=== PATIENT | female | born 1955 | race Caucasian/White ===

== ENCOUNTER 2017-12-23 12:18 | Emergency (ER) | payer BC ==
[2017-12-23 14:19] LABS: ADD MAN DIFF? NO
[2017-12-23 14:23] LABS: BASOPHILS % 0.4 % (0.0-2.0); EOSINOPHILS # 0.1 10^3/ul (0.0-0.5); EOSINOPHILS % 0.6 % (0.0-7.0); HEMOGLOBIN 10.4 g/dl (12.0-16.0); LYMPHOCYTES # 2.1 10^3/ul (0.8-2.9); LYMPHOCYTES % 26.6 % (15.0-51.0); MEAN CORPUSCULAR HEMOGLOBIN 29.1 pg (29.0-33.0); MEAN CORPUSCULAR HGB CONC 33.5 g/dl (32.0-37.0); MEAN CORPUSCULAR VOLUME 86.8 fl (82.0-101.0); MEAN PLATELET VOLUME 8.5 fl (7.4-10.4); MONOCYTE # 0.6 10^3/ul (0.3-0.9); MONOCYTES % 7.9 % (0.0-11.0); NEUTROPHIL # 5.1 10^3/ul (1.6-7.5); NEUTROPHILS % 63.7 % (39.0-77.0); PLATELET COUNT 503 10^3/UL (140-415); RED BLOOD COUNT 3.57 10^6/ul (4.20-5.40)
[2017-12-23] MEDS: PIPER-TAZO 3.375 GM IV (PMX) 100 ML IVPB (14:24)
[2017-12-23] MEDS: SODIUM CHLORIDE 0.9% 1L BAG IV* (14:25)
[2017-12-23 14:42] LABS: ALANINE AMINOTRANSFERASE 10 IU/L (13-69); ALBUMIN 3.2 g/dl (3.3-4.9); ALKALINE PHOSPHATASE 121 IU/L (42-121); AMYLASE 100 U/L (11-123); ANION GAP 16 (8-16); ASPARTATE AMINO TRANSFERASE 21 IU/L (15-46); BLOOD UREA NITROGEN 12 mg/dl (7-20); CALCIUM 9.2 mg/dl (8.4-10.2); CARBON DIOXIDE 27 mmol/L (21-31); CHLORIDE 104 mmol/L (97-110); CREATININE 0.57 mg/dl (0.44-1.00); GLUCOSE 108 mg/dl (70-220); LIPASE 279 U/L (23-300); SODIUM 144 mmol/L (135-144); TOTAL PROTEIN 8.5 g/dl (6.1-8.1)
[2017-12-23 14:48] LABS: LACTIC ACID 2.1 mmol/L (0.5-2.0)
[2017-12-23 14:56] LABS: TROPONIN-I < 0.012 ng/ml (0.00-0.12)
[2017-12-23 15:00] LABS: INR 0.99; PROTIME 13.2 Sec (11.9-14.9)
[2017-12-23 15:01] LABS: PARTIAL THROMBOPLASTIN TIME 39.8 Sec (25.0-35.0)
[2017-12-23] MEDS: CLINDAMYCIN 900 MG/D5W (PMX) 50 ML IVPB (15:26)
[2017-12-23 16:21] LABS: ADD UMIC YES; UR ASCORBIC ACID NEGATIVE (NEGATIVE); UR BACTERIA FEW /HPF (NONE SEEN); UR BILIRUBIN (Dip) NEGATIVE (NEGATIVE); UR BLOOD (Dip) 2+ mg/dL (NEGATIVE); UR CLARITY CLEAR (CLEAR); UR COLOR YELLOW (YELLOW); UR GLUCOSE (Dip) NEGATIVE (NEGATIVE); UR KETONES (Dip) NEGATIVE (NEGATIVE); UR LEUKOCYTE ESTERASE (Dip) TRACE Leu/ul (NEGATIVE); UR NITRITE (Dip) NEGATIVE (NEGATIVE); UR RBC 1 /HPF (0-5); UR SPECIFIC GRAVITY (Dip) 1.011 (1.003-1.030); UR TOTAL PROTEIN (Dip) NEGATIVE (NEGATIVE); UR UROBILINOGEN (Dip) NEGATIVE (NEGATIVE); UR WBC 2 /HPF (0-5)
[2017-12-23 16:39] LABS: AMPHETAMINE/METHAMPHETAMINE Negative (NEGATIVE)
[2017-12-23 16:40] LABS: LACTIC ACID 0.8 mmol/L (0.5-2.0)
[2017-12-23 16:40] LABS: BARBITURATES Negative (NEGATIVE); BENZODIAZEPINES Negative (NEGATIVE); CANNABINOIDS Negative (NEGATIVE); COCAINE Negative (NEGATIVE); OPIATES Positive (NEGATIVE)
[2017-12-23] MEDS: VANCOMYCIN 1 GM (PMX) 250 ML IVPB (16:54)
[2017-12-23] MEDS: SOD CHLORIDE 0.9% 1,000 ML IV (19:00)
[2017-12-23] MEDS ORDERED: METHADONE 10 MG TAB PO (19:00)
== END 2017-12-23 22:35 | disposition home or self-care (01) ==
LOC: E/R 22:35 → FTE 12:18
DX: A41.9 Sepsis, unspecified organism (principal); T81.4XXA Infection following a procedure, initial encounter; F17.210 Nicotine dependence, cigarettes, uncomplicated; Y79.2 Prosthetic and other implants, materials and accessory orthopedic devices associated with adverse incidents; Z79.01 Long term (current) use of anticoagulants
CPT/HCPCS: 73590; 80053; 80307; 81001; 82150; 83605; 83690; 84484; 85025; 85610; 85730; 86850; 86900; 86901; 87040; 87086; 93005; 96365; 96366; 96367; 99291-25